=== PATIENT | male | born 1950 | race Caucasian/White ===

== ENCOUNTER 2016-10-22 21:38 | Emergency (ER) | payer MEDICAID ==
[~2016-10-22] VITALS: Ht 177.8 cm; Wt 94.3 kg
[2016-10-22 22:10] VITALS: BP 152/87; PULSE 61; RESP 16; TEMP 98.4; O2SAT 99
--- NOTE | 2016-10-22 22:10 | NUR ---
Patient to [facility] for evaluation. Report recieved from Heather GENAO
--- NOTE | 2016-10-22 22:12 | NUR ---
Pt in [facility]wy with c/o right middle finger pain, Dr Ariza aware.
--- NOTE | 2016-10-22 22:15 | NUR ---
ER at bedside examining patient.
[2016-10-22] MEDS ORDERED: KETOROLAC TROMETHAMINE 60 MG/2 ML VIAL IM ONE (22:30)
[2016-10-22 23:00] LABS: BASOPHILS # (AUTO) 0.1 K/uL (0.0-0.2); BASOPHILS % (AUTO) 0.9 % (0.0-2.0); EOSINOPHILS # (AUTO) 0.2 K/uL (0.0-0.4); EOSINOPHILS % (AUTO) 1.8 % (0.0-4.0); HEMATOCRIT 36.2 % (36-54); HEMOGLOBIN 12.3 g/dL (14.0-18.0); LYMPHOCYTES # (AUTO) 2.1 K/uL (1.0-5.5); LYMPHOCYTES % (AUTO) 24.1 % (20.5-51.5); MEAN CORPUSCULAR HEMOGLOBIN 32 pg (27-31); MEAN CORPUSCULAR HGB CONC 34 % (32-36); MEAN CORPUSCULAR VOLUME 94 fL (79.0-98.0); MONOCYTES # (AUTO) 0.7 K/uL (0.0-1.0); MONOCYTES % (AUTO) 7.5 % (1.7-9.3); NEUTROPHILS # (AUTO) 5.6 K/uL (1.8-7.7); NEUTROPHILS % (AUTO) 65.7 % (40.0-70.0); PLATELET COUNT (AUTO) 262 K/uL (130-430); RED BLOOD CELL COUNT(AUTO) 3.85 MIL/uL (4.2-6.2); RED CELL DISTRIBUTION WIDTH 13.5 % (9.0-15.0); WHITE BLOOD COUNT (AUTO) 8.7 K/uL (4.8-10.8)
[2016-10-22 23:09] LABS: CALCIUM 8.7 mg/dL (8.4-11.0); CREATININE 1.79 mg/dL (0.55-1.30); POTASSIUM 4.3 mmol/L (3.5-5.1)
[2016-10-22 23:13] LABS: ALBUMIN 3.9 g/dL (3.4-4.8); TOTAL BILIRUBIN 0.2 mg/dL (0.0-1.0); TOTAL PROTEIN, SERUM 8.1 g/dL (6.4-8.3); URIC ACID 8.2 mg/dL (2.4-7.0)
[2016-10-22 23:39] LABS: INR 0.9 (0.80-1.20)
[2016-10-22 23:57] VITALS: BP 145/89; PULSE 65; RESP 16; TEMP 98.4; O2SAT 99
--- NOTE | 2016-10-22 23:58 | NUR ---
Patient given written and verbal discharge instructions and verbalizes understanding. ER MD discussed with patient the results and treatment provided. Given copies of tests performed in ER. Patient in stable condition. ID arm band removed. Rx of Colchicine 0.6 mg tab abd Olin 5/325 mg given. Patient educated on pain management and to follow up with PMD. Pain Scale 5/10. Opportunity for questions provided and answered.
== END 2016-10-22 23:58 | disposition home or self-care (01) ==
LOC: SED 21:38
DX: M10.9 Gout, unspecified (principal); I10 Essential (primary) hypertension; M79.644 Pain in right finger(s); M19.90 Unspecified osteoarthritis, unspecified site
CPT/HCPCS: 36415; 73130; 80053; 84550; 85025; 85610; 85730; 96372; 99285; J1885

== ENCOUNTER → 2017-10-14 | Emergency (ER) | payer OTHER, MEDICAID ==
[~2017-10-14] VITALS: Ht 177.8 cm; Wt 94.3 kg
[2017-10-14 09:42] VITALS: BP_SYST 141
--- NOTE | 2017-10-14 12:28 | NUR ---
patient told hotel or motel receptionist to he is leaving without being seen.
--- NOTE | 2017-10-14 12:45 | NUR ---
Called for patient, unable to locate.
--- NOTE | 2017-10-14 13:00 | NUR ---
Called for patient, unable to locate. Patient presumed to have left without being seen as he stated he was going to.
== END | disposition still patient (30) ==
LOC: SED 09:33
DX: M79.671 Pain in right foot (principal); Z53.21 Procedure and treatment not carried out due to patient leaving prior to being seen by health care provider

== ENCOUNTER 2019-10-14 18:52 | Emergency (ER) | payer OTHER ==
[~2019-10-14] VITALS: Ht 177.8 cm; Wt 93.9 kg
[2019-10-14 19:45] VITALS: BP_SYST 163
== END 2019-10-14 23:06 | disposition left against medical advice (07) ==
LOC: SED 18:52
DX: K08.89 Other specified disorders of teeth and supporting structures (principal); Z53.21 Procedure and treatment not carried out due to patient leaving prior to being seen by health care provider

== ENCOUNTER 2020-11-30 11:11 | Emergency (ER) | payer OTHER ==
[~2020-11-30] VITALS: Ht 175.3 cm; Wt 97.1 kg
[2020-11-30 11:19] VITALS: BP_SYST 156
[2020-11-30] MEDS ORDERED: TRAM50TA2 PO (11:46)
[2020-11-30] MEDS ORDERED: INDO-12 PO (11:46)
[2020-11-30] MEDS ORDERED: KETOROLAC TROMETHAMINE 60 MG/2 ML VIAL IM ONE (12:00)
== END 2020-11-30 12:13 | disposition home or self-care (01) ==
LOC: SED 11:11
DX: M10.9 Gout, unspecified (principal); I10 Essential (primary) hypertension; Z79.899 Other long term (current) drug therapy
CPT/HCPCS: 96372; 99283; J1885

== ENCOUNTER 2020-12-30 17:29 | Emergency (ER) | payer OTHER ==
[~2020-12-30] VITALS: Ht 177.8 cm; Wt 97.5 kg
[~2020-12-30 17:29] MED LIST: INDO-12 PO; TRAM50TA2 PO
[2020-12-30 17:32] VITALS: BP_SYST 143
[2020-12-30] MEDS ORDERED: KETOROLAC TROMETHAMINE 60 MG/2 ML VIAL IM ONE (17:45)
[2020-12-30] MEDS ORDERED: TRAM50TA PO (17:45)
[2020-12-30] MEDS ORDERED: predniSONE 20 MG TABLET PO ONE (17:45)
[2020-12-30] MEDS ORDERED: PRED20TA PO (17:45)
[2020-12-30] MEDS ORDERED: INDO-12 PO (17:45)
[2020-12-30 18:14] VITALS: BP_SYST 143
== END 2020-12-30 18:14 | disposition home or self-care (01) ==
LOC: SED 17:29
DX: M10.9 Gout, unspecified (principal); I10 Essential (primary) hypertension; Z79.899 Other long term (current) drug therapy
CPT/HCPCS: 96372; 99283; J1885; J7512

== ENCOUNTER 2021-09-29 10:17 | Emergency (ER) | payer OTHER ==
[~2021-09-29] VITALS: Ht 177.8 cm; Wt 95.3 kg
[2021-09-29 10:17] VITALS: BP_SYST 142
[~2021-09-29 10:17] MED LIST changes: +PRED20TA PO; +TRAM50TA PO
[2021-09-29] MEDS ORDERED: COLC0.6T67 PO (11:45)
[2021-09-29] MEDS ORDERED: KETOROLAC TROMETHAMINE 30 MG VIAL IM ONE (11:45)
[2021-09-29] MEDS ORDERED: INDO-12 PO (11:45)
[2021-09-29] MEDS ORDERED: COLCHICINE 0.6 MG TABLET PO ONE (11:45)
[2021-09-29 12:26] VITALS: BP_SYST 142
== END 2021-09-29 12:28 | disposition home or self-care (01) ==
LOC: SED 10:17
DX: M10.9 Gout, unspecified (principal); M25.562 Pain in left knee; I10 Essential (primary) hypertension; Z79.899 Other long term (current) drug therapy
CPT/HCPCS: 96372; 99283; J1885

== ENCOUNTER 2022-01-18 16:55 | Emergency (ER) | payer OTHER ==
[~2022-01-18] VITALS: Ht 177.8 cm; Wt 97.5 kg
[~2022-01-18 16:55] MED LIST changes: +COLC0.6T67 PO
[2022-01-18 17:23] VITALS: BP_SYST 138
--- NOTE | 2022-01-18 17:29 | NUR ---
Pt triaged and placed in waiting room pending bed availability.
[2022-01-18] MEDS ORDERED: KETOROLAC TROMETHAMINE 60 MG/2 ML VIAL IM ONE (18:15)
--- NOTE | 2022-01-18 18:15 | NUR ---
Patient to ER bed H1 for evaluation. Side rails up. Report given to Sultana SOLOMON.
--- NOTE | 2022-01-18 18:20 | NUR ---
Pt presents to the ER bib self for c/o gout flare up. Elbow pain 10/10 radiates distal to pinky. aaox4 skin intact. PMHx gout
[2022-01-18] MEDS ORDERED: INDO-12 PO (18:32)
[2022-01-18 19:21] VITALS: BP_SYST 138
--- NOTE | 2022-01-18 19:23 | NUR ---
Patient given written and verbal discharge instructions and verbalizes understanding. ER MD discussed with patient the results and treatment provided. Patient in stable condition. ID arm band removed. IV catheter removed intact and dressing applied, no active bleeding. Rx of Indomethacin given. Patient educated on gout flare ups. Opportunity for questions provided and answered. Medication side effect fact sheet provided.
== END 2022-01-18 19:21 | disposition home or self-care (01) ==
LOC: SED 16:55
DX: M10.9 Gout, unspecified (principal); I10 Essential (primary) hypertension; Z79.899 Other long term (current) drug therapy
CPT/HCPCS: 96372; 99283; J1885

== ENCOUNTER 2022-03-10 00:33 | Emergency (ER) | payer OTHER ==
[~2022-03-10] VITALS: Ht 177.8 cm; Wt 96.2 kg
[2022-03-10 00:43] VITALS: BP_SYST 143
--- NOTE | 2022-03-10 00:46 | NUR ---
PT FROM HOME WITH C/O PAIN TO THE LEFT FOOT. PT STATES THAT IT IS A GOUT FLARE UP THAT STARTED YESTERDAY AND RATES PAIN 04/16. PT HAS HX OF GOUT. PT AMBULATORY. HX OF HTN. VSS. PT PLACED IN WAITING ROOM.
--- NOTE | 2022-03-10 01:40 | NUR ---
Patient to ER bed 04 for evaluation. Side rails up. Report given to Dixie GENAO.
[2022-03-10] MEDS ORDERED: predniSONE 20 MG TABLET PO ONE (01:45)
[2022-03-10] MEDS ORDERED: KETOROLAC TROMETHAMINE 30 MG VIAL IM ONE (01:45)
--- NOTE | 2022-03-10 01:45 | NUR ---
BIRGIT GERMAN BIB AMB WITH TRIAGE NURSE. REPORT FROM BIRGIT HARDEN. PT C/O LEFT FOOT PAIN. HX: GOUT.
[2022-03-10] MEDS ORDERED: PRED20TA PO (04:42)
[2022-03-10] MEDS ORDERED: TRAM50TA2 PO (04:42)
[2022-03-10 04:52] VITALS: BP_SYST 120
--- NOTE | 2022-03-10 04:53 | NUR ---
PT STABLE FOR D/C TO HOME. TO LOBBY AMB WITH ALL PAPERWORK IN HAND. NO PAIN. AMB WITH STEADY AND EVEN GAIT
== END 2022-03-10 04:50 | disposition home or self-care (01) ==
LOC: SED 00:33
DX: M10.9 Gout, unspecified (principal); M79.675 Pain in left toe(s); I10 Essential (primary) hypertension; Z79.899 Other long term (current) drug therapy
CPT/HCPCS: 99283; 96372; J7512; J1885

== ENCOUNTER 2022-03-18 14:53 | Emergency (ER) | payer OTHER ==
[~2022-03-18] VITALS: Ht 177.8 cm; Wt 95.3 kg
[2022-03-18 15:26] VITALS: BP_SYST 164
--- NOTE | 2022-03-18 15:45 | NUR ---
Patient triaged and placed in waiting room. VSS and patient appears in no acute distress at this time. Accompanied by self, awaiting available bed, and MD notified of need for MSE.
--- NOTE | 2022-03-18 17:18 | NUR ---
PT TAKEN TO BED 4, REPORT GIVEN TO BIRGIT ROBERTS.
--- NOTE | 2022-03-18 17:20 | NUR ---
PT PRESENTED TO ER WITH COMPLAINT OF GOUT FLAREUP/ PT HAS BEEN FOLLOWING DIET PT IS IN PAIN ON HIS RIGHT KNEE WITH LOWER BILATERAL PAIN DO TO FLAREUP. PT PLACED ON VITAL MONITOR. VITALS WITHIN NORMAL LIMITS. PT IS IN BED WITH BED LOWERED, LOCKED AND RAILS UP. WILL CONTINUE TO MONITOR
--- NOTE | 2022-03-18 18:12 | NUR ---
DR QUINTANILLA SUBMITD ORDERS FOR PT
[2022-03-18] MEDS ORDERED: COLC0.6T67 PO ×3 (18:20→18:37)
[2022-03-18] MEDS ORDERED: TRAM50TA PO ×2 (18:20→18:37)
[2022-03-18] MEDS: ONDANSETRON 4 MG ODT TAB PO ONE (18:38)
[2022-03-18] MEDS: MORPHINE 4 MG INJ. 4 MG/ML VIAL IM ONE (18:38)
--- NOTE | 2022-03-18 18:46 | NUR ---
Patient given written and verbal discharge instructions and verbalizes understanding. ER DR SUZIE CASE discussed with patient the results and treatment provided. Patient in stable condition. ID arm band removed. IV catheter removed intact and dressing applied, no active bleeding. Rx of COLCHICINE AND TRAMADOL given. Patient educated on pain management and to follow up with PMD. Opportunity for questions provided and answered. Medication side effect fact sheet provided.
[2022-03-18 18:50] VITALS: BP_SYST 157
== END 2022-03-18 22:04 | disposition home or self-care (01) ==
LOC: SED 14:53
DX: M10.9 Gout, unspecified (principal); M25.562 Pain in left knee; I10 Essential (primary) hypertension; Z79.899 Other long term (current) drug therapy
CPT/HCPCS: 99283; 96372; Q0162; J2270

== ENCOUNTER 2022-03-21 11:44 | Emergency (ER) | payer OTHER ==
[~2022-03-21] VITALS: Ht 177.8 cm; Wt 95.3 kg
[2022-03-21 12:29] VITALS: BP_SYST 131
--- NOTE | 2022-03-21 12:37 | NUR ---
BIBS WITH C/C OF BILATERAL KNEE PAIN. PT DC FROM ER LAST MONDAY AND PT STATES THE MEDICATIONS DO NOT HELP HIM. DOES NOT KNOW MED BUT STATES IT WAS AN ANTI-INFLAMMATORY. PT STATES HE SLIPPED AND FELL IN THE SHOWER BECAUSE OF HIS PAIN. NAD NOTED BUT PT REPORTS PAIN /. PLACED IN WR. WILL NOTIFY DR. BUTCHER.
[2022-03-21] MEDS ORDERED: PRED20TA PO (13:28)
[2022-03-21] MEDS ORDERED: NAPR-1172 PO (13:29)
[2022-03-21] MEDS ORDERED: predniSONE 20 MG TABLET PO ONE (13:30)
[2022-03-21] MEDS ORDERED: KETOROLAC TROMETHAMINE 30 MG VIAL IM ONE (13:30)
[2022-03-21 14:57] VITALS: BP_SYST 126
--- NOTE | 2022-03-21 14:58 | NUR ---
PT CLEARED FOR DC. VSS, AFEBRILE. VERBALIZED UNDERSTANDING OF DC INSTRUCTIONS
== END 2022-03-21 14:57 | disposition home or self-care (01) ==
LOC: SED 11:44
DX: M10.9 Gout, unspecified (principal); M25.562 Pain in left knee; M25.561 Pain in right knee; I10 Essential (primary) hypertension; Z79.899 Other long term (current) drug therapy
CPT/HCPCS: 99283; 73560; 96372; J7512; J1885

== ENCOUNTER 2022-04-14 03:12 | Emergency (ER) | payer OTHER ==
[~2022-04-14] VITALS: Ht 177.8 cm; Wt 92.5 kg
[~2022-04-14 03:12] MED LIST changes: +NAPR-1172 PO
[2022-04-14 03:25] VITALS: BP_SYST 140
--- NOTE | 2022-04-14 03:54 | NUR ---
Herb jin in ED - 04/14/22 at 0600 by SERGEEDPR [facility] Abreu at bedside examining patient.
[2022-04-14] MEDS ORDERED: MORPHINE 4 MG INJ. 4 MG/ML VIAL IM ONE (04:00)
[2022-04-14] MEDS ORDERED: ONDANSETRON 4 MG ODT TAB PO ONE (04:00)
[2022-04-14] MEDS ORDERED: COLC0.6T67 PO (04:04)
[2022-04-14] MEDS ORDERED: TRAM50TA PO (04:04)
--- NOTE | 2022-04-14 04:09 | NUR ---
Pt ambulated to room 2 using a FWW with c/o R knee pain tonight. Pt sts he had the same pain issue on his R knee that he was also in the ER last month. Pt sts his pain is 10/10 at this time. Denies trauma and denies new injury. Medicated pt per eMAR as ordered by DR Abdul. Pt tolerated the meds.
--- NOTE | 2022-04-14 04:10 | NUR ---
ER Dr.Dela Abreu at bedside examining patient.
--- NOTE | 2022-04-14 05:34 | NUR ---
Pt dc from ER in no acute distress. Vitals are WNL. PT reports pain is much tolerable this time. Pt ambulated using FWW without any difficulty.
[2022-04-14 05:35] VITALS: BP_SYST 132
== END 2022-04-14 05:34 | disposition home or self-care (01) ==
LOC: SED 03:12
DX: M25.561 Pain in right knee (principal); M10.9 Gout, unspecified; I10 Essential (primary) hypertension; Z79.899 Other long term (current) drug therapy
CPT/HCPCS: 99283; 96372; Q0162; J2270

== ENCOUNTER 2022-04-21 08:20 | Emergency (ER) | payer OTHER ==
[~2022-04-21] VITALS: Ht 177.8 cm; Wt 92.5 kg
[2022-04-21 08:28] VITALS: BP_SYST 140
--- NOTE | 2022-04-21 08:28 | NUR ---
Patient to ER bed 7 to gown for evaluation. Side rails up. Report given to Jocelyne SOLOMON.
--- NOTE | 2022-04-21 08:46 | NUR ---
Pt bib self to ER CC swelling to lower chin. Pt states stung by a bee yesterday morning. Denies itchiness, denies sob, pt resp. even and unlabored. Denies pain. Pt is relaxed in bed NAD, aaox4. Hx htn and gout.
[2022-04-21 08:54] LABS: BASOPHILS % (AUTO) 0.6 % (0.0-2.0); EOSINOPHILS % (AUTO) 0.1 % (0.0-4.0); HEMATOCRIT 33.4 % (36-54); LYMPHOCYTES # (AUTO) 1.4 K/uL (1.0-5.5); LYMPHOCYTES % (AUTO) 17.5 % (20.5-51.5); MEAN CORPUSCULAR VOLUME 95 fL (79.0-98.0); MONOCYTES # (AUTO) 0.5 K/uL (0.0-1.0); NEUTROPHILS # (AUTO) 5.9 K/uL (1.8-7.7); NEUTROPHILS % (AUTO) 74.8 % (40.0-70.0); PLATELET COUNT (AUTO) 318 K/uL (130-430); RED BLOOD CELL COUNT(AUTO) 3.51 MIL/uL (4.2-6.2); RED CELL DISTRIBUTION WIDTH 14.6 % (9.0-15.0); WHITE BLOOD COUNT (AUTO) 7.9 K/uL (4.8-10.8)
[2022-04-21 09:02] LABS: ANION GAP 8 (5-15); CALCIUM 9.7 mg/dL (8.4-11.0); CHLORIDE 104 mmol/L (98-107); CREATININE 1.56 mg/dL (0.55-1.30); GLUCOSE 134 mg/dL (70-99); SODIUM SERUM 137 mmol/L (136-145); UREA NITROGEN, BLOOD 28 mg/dL (8-21)
[2022-04-21 09:05] LABS: GFR AFRICAN AMERICAN 57 mL/min (>90)
[2022-04-21 09:08] LABS: ALANINE AMINOTRANSFERASE 23 U/L (12-78); ALBUMIN 3.4 g/dL (3.4-4.8); ASPARTATE AMINOTRANSFERASE 16 U/L (10-37); TOTAL BILIRUBIN 0.3 mg/dL (0.0-1.0)
[2022-04-21 09:26] LABS: C-REACTIVE PROTEIN QUANT < 0.2 mg/dL (0-0.5)
--- NOTE | 2022-04-21 09:58 | NUR ---
ER at bedside examining patient.
[2022-04-21] MEDS ORDERED: DIPH25CA83 PO (10:19)
[2022-04-21] MEDS ORDERED: CLIN-22 PO (10:19)
[2022-04-21 10:51] VITALS: BP_SYST 155
--- NOTE | 2022-04-21 10:52 | NUR ---
Patient given written and verbal discharge instructions and verbalizes understanding. ER MD discussed with patient the results and treatment provided. Patient in stable condition. ID arm band removed. Rx of CLINDAMYCIN, BENADRYL given. Patient educated on pain management and to follow up with PMD. Pain Scale 0/10. Opportunity for questions provided and answered. Medication side effect fact sheet provided.
== END 2022-04-21 10:52 | disposition home or self-care (01) ==
LOC: SED 08:20
DX: T63.441A Toxic effect of venom of bees, accidental (unintentional), initial encounter (principal); I10 Essential (primary) hypertension; Z79.899 Other long term (current) drug therapy; Y92.89 Other specified places as the place of occurrence of the external cause
CPT/HCPCS: 36415; 80053; 83605; 85025; 86140; 99283

== ENCOUNTER 2022-05-11 08:23 | Emergency (ER) | payer OTHER ==
[~2022-05-11] VITALS: Ht 177.8 cm; Wt 93.0 kg
[~2022-05-11 08:23] MED LIST changes: +CLIN-22 PO; +DIPH25CA83 PO
[2022-05-11 08:30] VITALS: BP_SYST 147
[2022-05-11 10:01] VITALS: BP_SYST 147
== END 2022-05-11 09:43 | disposition home or self-care (01) ==
LOC: SED 08:23
DX: M70.21 Olecranon bursitis, right elbow (principal); M25.521 Pain in right elbow; I10 Essential (primary) hypertension; Z79.899 Other long term (current) drug therapy
CPT/HCPCS: 99283

== ENCOUNTER 2024-01-31 07:33 | Emergency (ER) | payer OTHER ==
[~2024-01-31] VITALS: Ht 177.8 cm; Wt 94.3 kg
[2024-01-31 07:40] VITALS: BP_SYST 158; PULSE 78; RESP 18; TEMP 98.2; O2SAT 100
[2024-01-31] MEDS ORDERED: NAPR-690 PO (08:29)
[2024-01-31] MEDS: KETOROLAC TROMETHAMINE 30 MG VIAL IM ONE (08:45)
[2024-01-31] MEDS: DEXAMETHASONE SOD PHOSPHATE 4 MG/ML VIAL PO ONE (08:45)
[2024-01-31 08:50] VITALS: BP_SYST 140; PULSE 80; RESP 21; TEMP 98; O2SAT 99
== END 2024-01-31 08:50 | disposition home or self-care (01) ==
LOC: SED 07:33
DX: M10.9 Gout, unspecified (principal); M79.671 Pain in right foot; I10 Essential (primary) hypertension; Z79.899 Other long term (current) drug therapy; Z79.2 Long term (current) use of antibiotics
CPT/HCPCS: 99283; 73630; 96372; J1100; J1885

== ENCOUNTER 2024-04-14 21:15 | Emergency (ER) | payer OTHER ==
[~2024-04-14] VITALS: Ht 177.8 cm; Wt 95.3 kg
[~2024-04-14 21:15] MED LIST changes: +NAPR-690 PO
[2024-04-14 21:28] VITALS: BP_SYST 139; PULSE 83; RESP 18; TEMP 98.1; O2SAT 97
[2024-04-14] MEDS: KETOROLAC TROMETHAMINE 30 MG VIAL IM ONE (22:23)
[2024-04-14] MEDS ORDERED: TRAM50TA2 PO (23:06)
[2024-04-14] MEDS ORDERED: INDO-12 PO (23:06)
[2024-04-14 23:16] VITALS: BP_SYST 139; PULSE 83; RESP 18; TEMP 98.1; O2SAT 97
== END 2024-04-14 23:16 | disposition home or self-care (01) ==
LOC: SED 21:15
DX: M25.511 Pain in right shoulder (principal); M10.9 Gout, unspecified; I10 Essential (primary) hypertension; Z79.899 Other long term (current) drug therapy; Z79.2 Long term (current) use of antibiotics
CPT/HCPCS: 99283; 96372; J1885

== ENCOUNTER 2024-04-17 08:39 | Emergency (ER) | payer OTHER ==
[~2024-04-17] VITALS: Ht 177.8 cm; Wt 95.3 kg
[2024-04-17 08:56] VITALS: BP_SYST 143; PULSE 64; RESP 18; TEMP 97.8; O2SAT 100
[2024-04-17] MEDS: MORPHINE 2 MG/ML INJ. SYRINGE IM ONE (09:44)
[2024-04-17 11:28] VITALS: BP_SYST 143; PULSE 64; RESP 18; TEMP 97.8; O2SAT 100
== END 2024-04-17 11:26 | disposition home or self-care (01) ==
LOC: SED 08:39
DX: M13.811 Other specified arthritis, right shoulder (principal); M25.511 Pain in right shoulder; I10 Essential (primary) hypertension; Z79.899 Other long term (current) drug therapy; Z79.2 Long term (current) use of antibiotics
CPT/HCPCS: 99283; 73030; 96372; J2270

== ENCOUNTER 2024-04-25 10:11 | Emergency (ER) | payer OTHER ==
[~2024-04-25] VITALS: Ht 177.8 cm; Wt 92.1 kg
[2024-04-25 10:14] VITALS: BP_SYST 150; PULSE 69; RESP 16; TEMP 97.1; O2SAT 97
[2024-04-25] MEDS: KETOROLAC TROMETHAMINE 60 MG/2 ML VIAL IM ONE (10:36)
[2024-04-25] MEDS: HYDROcodone/ACETAMIN 10-325 MG TAB PO ONE (10:36)
[2024-04-25 10:45] LABS: BASOPHILS # (AUTO) 0.2 K/uL (0.0-0.2); BASOPHILS % (AUTO) 2.2 % (0.0-2.0); EOSINOPHILS # (AUTO) 0.3 K/uL (0.0-0.4); EOSINOPHILS % (AUTO) 3.3 % (0.0-4.0); HEMOGLOBIN 11.9 g/dL (14.0-18.0); LYMPHOCYTES # (AUTO) 2.1 K/uL (1.0-5.5); MEAN CORPUSCULAR HEMOGLOBIN 34 pg (27-31); MEAN CORPUSCULAR HGB CONC 34 % (32-36); MEAN CORPUSCULAR VOLUME 99 fL (79.0-98.0); MONOCYTES # (AUTO) 0.8 K/uL (0.0-1.0); MONOCYTES % (AUTO) 9.8 % (1.7-9.3); NEUTROPHILS # (AUTO) 4.4 K/uL (1.8-7.7); NEUTROPHILS % (AUTO) 57.7 % (40.0-70.0); PLATELET COUNT (AUTO) 373 K/uL (130-430); RED BLOOD CELL COUNT(AUTO) 3.55 MIL/uL (4.2-6.2); RED CELL DISTRIBUTION WIDTH 14.1 % (9.0-15.0); WHITE BLOOD COUNT (AUTO) 7.7 K/uL (4.8-10.8)
[2024-04-25 11:06] LABS: ERYTHROCYTE SEDIMENTATION RATE 35 MM/HR (0-15)
[2024-04-25 11:35] LABS: ANION GAP 9 (5-15); CALCIUM 9.5 mg/dL (8.4-11.0); CARBON DIOXIDE 26 mmol/L (23-29); CHLORIDE 102 mmol/L (98-107); CREATININE 1.53 mg/dL (0.55-1.30); GLUCOSE 100 mg/dL (74-106); POTASSIUM 4.4 mmol/L (3.5-5.1); SODIUM SERUM 137 mmol/L (136-145); UREA NITROGEN, BLOOD 23 mg/dL (8-21); URIC ACID 7.2 mg/dL (2.4-7.0)
[2024-04-25] MEDS ORDERED: IBUP-1969 PO (12:27)
[2024-04-25] MEDS ORDERED: TRAM50TA2 PO (12:27)
[2024-04-25 12:34] VITALS: BP_SYST 150; PULSE 69; RESP 16; TEMP 97.1; O2SAT 97
== END 2024-04-25 12:35 | disposition home or self-care (01) ==
LOC: SED 10:11
DX: M25.561 Pain in right knee (principal); I10 Essential (primary) hypertension; Z79.899 Other long term (current) drug therapy; Z79.2 Long term (current) use of antibiotics
CPT/HCPCS: 99284; 80048; 84550; 85025; 85651; 36415; 73560; 96372; 82397; J1885

== ENCOUNTER 2024-05-09 08:13 | Emergency (ER) | payer OTHER ==
[~2024-05-09] VITALS: Ht 177.8 cm; Wt 92.1 kg
[~2024-05-09 08:13] MED LIST changes: +IBUP-1969 PO
[2024-05-09 08:20] VITALS: BP_SYST 170; PULSE 66; RESP 20; TEMP 98.3; O2SAT 100
[2024-05-09] MEDS: KETOROLAC TROMETHAMINE 30 MG VIAL IM ONE (08:55)
[2024-05-09] MEDS: COLCHICINE 0.6 MG TABLET PO ONE (09:00)
== END 2024-05-09 09:51 | disposition home or self-care (01) ==
LOC: SED 08:13
DX: M10.9 Gout, unspecified (principal); M25.511 Pain in right shoulder; I10 Essential (primary) hypertension; Z79.52 Long term (current) use of systemic steroids; Z79.899 Other long term (current) drug therapy; Z79.2 Long term (current) use of antibiotics
CPT/HCPCS: 99283; 96372; J1885

== ENCOUNTER 2024-05-22 09:40 | Emergency (ER) | payer OTHER ==
[~2024-05-22] VITALS: Ht 177.8 cm; Wt 91.2 kg
[2024-05-22 10:05] VITALS: BP_SYST 131; PULSE 66; RESP 18; TEMP 97.6; O2SAT 98
[2024-05-22] MEDS ORDERED: AMOX-423 PO (13:31)
[2024-05-22] MEDS: KETOROLAC TROMETHAMINE 30 MG VIAL IM ONE (14:28)
[2024-05-22 17:49] VITALS: BP_SYST 131; PULSE 66; RESP 18; TEMP 97.6; O2SAT 98
== END 2024-05-22 13:44 | disposition home or self-care (01) ==
LOC: SED 09:40
DX: S99.822A Other specified injuries of left foot, initial encounter (principal); G89.29 Other chronic pain; M25.511 Pain in right shoulder; I10 Essential (primary) hypertension; Z79.899 Other long term (current) drug therapy; W22.8XXA Striking against or struck by other objects, initial encounter; Y93.89 Activity, other specified; Y92.89 Other specified places as the place of occurrence of the external cause; Y99.8 Other external cause status
CPT/HCPCS: 99284; 11730; 96372; J1885